=== PATIENT | female | born 1965 | race Caucasian/White ===

== ENCOUNTER 2017-04-22 06:50 | Emergency (ER) | payer OTHER ==
--- NOTE | ~2017-04-22 | CT71 ---
[facility] A Service of [facility] RADIOLOGY TEXT RESULTS PATIENT: AB CONNORS LOCATION: [facility] : 65 UNIT #: [id number] AGE: [address]: Kym Cowan APRN SEX: F ORDER DR: [id number] [place] [id number] [facility]. [place], [place] [address] [id number] MR#: [id number] Acc #: [id number] NAME: AB CONNORS : 1965 SEX: F STUDY DATE/TIME: 04/22/2017 8:45 UNIT: [facility] ROOM: STUDY DESCRIPTION: CT Head Wo Contrast Attending Physician: Kym Cowan A.P.R.N. Ordering Physician: Kym Cowan A.P.R.N. Primary Care Physician: Leonard Carey M.D. MEDICAL IMAGING REPORT This report is preliminary unless electronic signature is present EXAM CT of the head without contrast INDICATIONS Headache for [address] exam was performed with one or more of the following radiation dose reduction techniques: automatic exposure control, adjustment of mA and/or kV according to patient size, and iterative reconstruction. CT head was performed without contrast. COMPARISON 08/17/2016 FINDINGS There is no intracranial hemorrhage. There is no acute cortical based infarction, focal mass lesion or hydrocephalus. The included orbits and paranasal sinuses are unremarkable. The bone windows are unremarkable. IMPRESSION No acute intracranial abnormality. Dictated by... Ryan Tovar M.D. THIS IS AN ELECTRONICALLY VERIFIED REPORT Ryan Tovar M.D. at 04/24/2017 7:47 AM ARS/willy TD: 04/22/2017 13:23 [facility] A Service [facility] RADIOLOGY TEXT RESULTS PATIENT: AB CONNORS LOCATION: [facility] : [birth year] UNIT #: [id number] AGE: [address]: Kym Cowan APRN SEX: F ORDER DR: ELMO #: [id number] MEDICAL IMAGING REPORT Page 1 of 1 COPY
--- NOTE | ~2017-04-22 | CR72 ---
[facility] A Service of [facility] RADIOLOGY TEXT RESULTS PATIENT: BA CONNORS LOCATION: [facility] : [birth year] UNIT #: [id number] AGE: [address]: Kym Cowan APRN SEX: F ORDER DR: [id number] [facility] [address] [place], [place] [address] [id number] E MR#: [id number] Acc #: [id number] NAME: AB CONNORS : 1965 SEX: F STUDY DATE/TIME: 04/22/2017 8:05 UNIT: [facility] ROOM: STUDY DESCRIPTION: CR Chest Single View Portable Attending Physician: Kym Cowan A.P.R.N. Ordering Physician: [facility] Primary Care Physician: Leonard Carey M.D. MEDICAL IMAGING REPORT This report is preliminary unless electronic signature is present EXAM Portable AP view of the chest COMPARISON August 04, 2016, February 09, 2016, and January 23, 2016. FINDINGS 51-year-old female with dyspnea and weakness for 2 days. History of hypertension. FINDINGS Lung volumes are diminished from comparison study with increasing bibasilar opacities. There are also increased interstitial opacities throughout the lungs likely reflecting bronchovascular crowding. Cardiomediastinal silhouette is within normal limits for portable technique low lung volumes. No evidence of significant pleural effusion. No pneumothorax. IMPRESSION Low lung volumes with increased bilateral lung opacities favoring bronchovascular crowding and atelectasis. Correlation to exclude any signs of pneumonia recommended. No pleural effusion. Dictated by... Fernando Hinson M.D. THIS IS AN ELECTRONICALLY VERIFIED REPORT Fernando Hinson M.D. at 04/29/2017 3:36 PM MARCK/barbara TD: 04/22/2017 13:17 JOB #: [id number] [facility] A Service of [facility] RADIOLOGY TEXT RESULTS PATIENT: AB CONNORS LOCATION: [facility] : [birth year] UNIT #: [id number] AGE: [address]: Kym Cowan APRN SEX: F ORDER DR: MEDICAL IMAGING REPORT Page 1 of 1 COPY
[~2017-04-22 06:50] MED LIST: ALPRAZOLAM; ALPRAZOLAM PO; AMITRIPTYLINE H25 MG PO; AMITRYPTYLINE PO; AMLODIPINE BESYL5 MG PO; ANUSOL-HC SUPP25 M1 PR; ASMANEX; BENADRYL; BENADRYL ALLERG25 MG PO; BENADRYL12.5 M1 PO; BENADRYL25 M1 PO; BENADRYL25 MG PO; BENTYL20 MG PO; BUSPAR PO; BUSPAR15 M1 PO; BUSPAR15 M2 PO; BUSPAR15 MG PO; BUSPIRONE HCL10 MG PO; BUSPIRONE HCL15 MG PO; CARVEDILOL12.5 MG PO; CARVEDILOL6.25 MG PO; CIPRO PO; CLEOCIN HCL300 M1 PO; CLEOCIN PO; COLACE; COMBIVENT INH14.7 GM INH; COMBIVENT MININEB INH; COREG PO; COREG12.5 MG PO; COREG3.125 MG PO; COREG6.25 MG PO; DAILY VALUE1 EACH PO; DEMEROL PO; DEMEROL50 MG; DEMEROL50 MG PO; DIPHENHYDRAMINE50 M2 PO; DITROPAN5 MG PO; DUONEB 2.5-0.5 M3 ML NEB; EFFEXOR XR75 MG PO; EFFEXOR-XR75 MG PO; EFFEXOR75 M2 PO; FAMOTIDINE PO; FLOMAX0.4 M1 PO; GLUCOTROL PO; GLUCOTROL XL; GLUCOTROL XL PO; HYDROCHLOROTH12.5 M1 PO; HYDROCHLOROTH12.5 MG PO; HYDROCHLOROTHIA25 MG PO; IMDUR-ER30 M1 PO; IMDUR30 MG PO; INVOKANA100 MG PO; INVOKANA300 MG PO; JANUVIA PO; K-DUR20 ME1 PO; K-TAB ER20 MEQ PO; KCL PO; KEPPRA500 M1 PO; KEPPRA750 M1 PO; LASIX PO; LEVEMIR SUBQ; LEVEMIR100 UNITS/ SUBQ; LISINOPRIL; LISINOPRIL PO; LISINOPRIL10 MG PO; LISINOPRIL20 MG PO; LISINOPRIL5 MG PO; MACROBID100 MG DOB; MEDROL DOSE PAK; MEDROL PO; MEPERIDINE HCL50 MG PO; MILK OF MAGNESIA; MIRALAX17 GM PO; NEXIUM; NEXIUM PO; NITROGLYGERIN0.4 MG SL; NITROGYLCERIN SUBLINGUAL; NORVASC PO; NOVOLOG100 U/ML SUBQ; OMEPRAZOLE20 M2 PO; OMEPRAZOLE40 MG PO; PEPCID40 MG PO; PHENERGAN PO; PHENERGAN25 M1 PO; PHENERGAN25 MG PO; POLYTRIM O10 ML OPTH OD; PREDNISONE PO; PRILOSEC20 M1 PO; PRILOSEC40 MG PO; PROAIR IH; PROTONIX PO; PYRIDIUM100 MG PO; REGLAN10 MG PO; RESTORIL15 MG PO; RESTORIL7.5 MG PO; ROBAXIN500 MG PO; SIMVASTATIN10 MG PO; SYMBICORT80 INH; TIZANIDINE HCL4 M1 PO; TRAJENTA PO; TRAZODONE PO; TYGACIL; VALTREX PO; XANAX2 MG PO; ZANAFLEX4 M1 PO; ZITHROMAX1 G/PKT PO; ZOCOR10 MG PO; ZOFRAN PO; ZONEGRAN100 M1 PO; [UNRECOGNIZED DRUG - OTHER]; [UNRECOGNIZED DRUG - OTHER]
[2017-04-22 08:37] LABS: BASOPHIL% 0.8 % (0-2.5); EOSINOPHIL# 0.2 X10e3 (0-0.7); EOSINOPHIL% 3.6 % (0.0-7.0); HEMATOCRIT 45.8 % (35.0-45.0); LYMPHOCYTE# 1.6 X10e3 (1.0-3.5); MEAN CORPUSCULAR HEMOGLOBIN 30.7 PG (28-34); MEAN CORPUSCULAR HGB CONC 32.7 g/dL (30-36); MEAN PLATELET VOLUME 9.4 FL (6.5-11.5); MONOCYTE# 0.5 X10e3 (0-1.0); MONOCYTE% 7.8 % (3.0-12.0); NEUTROPHIL# 3.6 X10e3 (1.5-7.1); NEUTROPHIL% 60.8 % (40-75); PLATELET COUNT 125 X10e3 (140-420); RED BLOOD COUNT 4.87 X10e (3.90-5.30); RED CELL DISTRIBUTION WIDTH 13.9 % (11.0-15.5)
[2017-04-22 08:38] LABS: DIFF IND NO
[2017-04-22 08:45] LABS: POC - CKMB <1.0 ng/mL (0.0-7.9); POC - TROPONIN <0.05 ng/mL (<=0.05)
[2017-04-22 09:15] LABS: ALBUMIN SERUM 3.6 g/dL (3.5-5.0); BILIRUBIN,TOTAL 0.8 mg/dL (0.2-2.0); CREATININE SERUM 0.5 mg/dL (0.6-1.4); GLOM FILT RATE Estimated 112.1 mL/min (>60); POTASSIUM 3.5 mmol/L (3.5-5.1); PROTEIN TOTAL SERUM 7.7 g/dL (6.0-8.3)
[2017-04-22 10:51] LABS: URINE SOURCE CLEAN CATCH
[2017-04-22 10:57] LABS: URINE APPEARANCE CLEAR; URINE BILIRUBIN NEG (NEG); URINE BLOOD 2+ (NEG); URINE COLOR YELLOW; URINE GLUCOSE >1000 MG/DL (NEG); URINE KETONE NEG (NEG); URINE LEUKOCYTE ESTERASE NEG (NEG); URINE NITRATE NEG (NEG); URINE PROTEIN NEG (NEG); URINE SPECIFIC GRAVITY 1.042 (1.003-1.035); URINE UROBILINOGEN 0.2 MG/DL (NEG)
[2017-04-22 10:59] LABS: CULTURE INDICATED? YES; URINE BACTERIA AUWI NEG (NEGATIVE); URINE SQUAMOUS EPITHELIAL CELL OCC /[HPF]
== END 2017-04-22 13:14 | disposition home or self-care (01) ==
LOC: CED 06:50
PROVIDERS: Nurse Practitioner
DX: R51 Headache (principal); N39.0 Urinary tract infection, site not specified; I11.0 Hypertensive heart disease with heart failure; I50.9 Heart failure, unspecified; E11.9 Type 2 diabetes mellitus without complications; Z87.891 Personal history of nicotine dependence; Z90.710 Acquired absence of both cervix and uterus; Z90.49 Acquired absence of other specified parts of digestive tract; Z98.890 Other specified postprocedural states; Z88.2 Allergy status to sulfonamides; Z88.0 Allergy status to penicillin; Z88.5 Allergy status to narcotic agent; Z88.1 Allergy status to other antibiotic agents; Z88.8 Allergy status to other drugs, medicaments and biological substances; Z79.899 Other long term (current) drug therapy; Z79.4 Long term (current) use of insulin
CPT/HCPCS: 36415; 70450; 71010; 80053; 81003; 82553; 82947; 83880; 84484; 85025; 87086; 96361; 96374; 99284; J1200; J2405

== ENCOUNTER → 2017-05-10 | Outpatient (CLI) | payer OTHER ==
[~2017-05-10] MED LIST changes: +ALBUTEROL17 GM INH; +ALLERGY PLUS-S1 EACH PO; +ASPIRIN81 MG PO; +CRESTOR10 MG PO; +CRESTOR40 MG; +DULERA 200 MCG/13 GM INH; +EFFIENT10 MG PO; +HUMULIN R500 UNIT/2 SUBQ; +JARDIANCE25 MG; +JARDIANCE25 MG PO; +POTASSIUM CHLO20 ME1 PO; +SYMBICORT INH; +TIZANIDINE HCL4 M1
--- NOTE | ~2017-05-10 | CT69 ---
[facility] A Service of [facility] RADIOLOGY TEXT RESULTS PATIENT: AB CONNORS LOCATION: [facility] : [birth year] UNIT #: [id number] AGE: [address]: Jonathan Reyes II, MD SEX: F ORDER DR: [id number] [place] [address] [id number] O MR#: [id number] Acc #: [id number] NAME: AB CONNORS : 1965 SEX: F STUDY DATE/TIME: 05/10/2017 9:52 UNIT: [facility] ROOM: STUDY DESCRIPTION: CT Head W Contrast Attending Physician: Jonathan Reyes II., M.D. Referring Physician: Jonathan Reyes II., M.D. Ordering Physician: Jonathan Reyes II., M.D. Primary Care Physician: Leonard Carey M.D. MEDICAL IMAGING REPORT This report is preliminary unless electronic signature is present. EXAM CT head with contrast 05/10/2017 HISTORY Diffuse head and neck pressure sensation, difficulty walking, off balance. Symptoms present for 1.5 month. Diagnosed with Chiari malformation 6 years ago. Diabetes. COMPARISON Noncontrast CT head 04/22/2017. TECHNIQUE This CT exam was performed with one or more of the following radiation dose reduction techniques: automatic exposure control, adjustment of mA and/or kV according to patient size, and iterative reconstruction. FINDINGS No enhancing mass lesion or abnormal leptomeningeal enhancement is seen. Ventricular configuration is normal. Normal pratt matter-white matter junction distinction. No convincing evidence of acute evolving infarct. Paranasal sinuses appear clear. Mastoid air cells are clear. Calvaria is within normal limits. IMPRESSION 1. Normal CT head with contrast. Dictated by... Kayy Richards M.D. THIS IS AN ELECTRONICALLY VERIFIED REPORT [facility] A Service [facility] RADIOLOGY TEXT RESULTS PATIENT: AB CONNORS LOCATION: [facility] : [birth year] UNIT #: [id number] AGE: [address]: Jonathan Reyes II, MD SEX: F ORDER DR: Kayy Richards M.D. at 05/13/2017 1:22 PM LAUREN/traci TD: 05/10/2017 17:09 JOB #: [id number] MEDICAL IMAGING REPORT Page 1 of 1
[2017-05-10 09:15] LABS: POC - CREATININE 0.82 mg/dL (0.44-1.03); POC - GFR >60.0 mL/min (>60)
== END | disposition home or self-care (01) ==
LOC: SCT 08:52 → SMRI 09:30 → SCT 09:30 → SMRI 13:45
PROVIDERS: Psychiatry & Neurology Neurology
DX: G43.709 Chronic migraine without aura, not intractable, without status migrainosus (principal)
CPT/HCPCS: 70460; 82565; Q9967

== ENCOUNTER 2017-07-20 23:53 | Inpatient (IN) | payer OTHER ==
[~2017-07-20] VITALS: Ht 152.4 cm; Wt 105.0 kg
--- NOTE | ~2017-07-20 | EKG ---
PATIENT: AB CONNORS UNIT #: [id number] Ventricular Rate: 83 BPM Atrial Rate: 83 BPM P-R Interval: 162 ms QRS Duration: 90 ms Q-T Interval: 396 ms QTC Calculation(Bezet): 465 ms P [place]: 49 degrees Calculated R [place]: -3 degrees Calculated T [place]: 28 degrees Diagnosis Line: Normal sinus rhythm Diagnosis Line: Minimal voltage criteria for LVH, may be normal Diagnosis Line: variant Diagnosis Line: Borderline ECG Diagnosis Line: When compared with ECG of 24-JUL-2017 17:21, Diagnosis Line: No significant change was found Diagnosis Line: Confirmed by EVELYN AHUMADA MD ([id number]) on Diagnosis Line: 07/26/2017 4:34:40 PM INTERPRETING MD: STACY
--- NOTE | ~2017-07-20 | CO ---
Unit #: [id number] #: [id number] Patient: AB CONNORS [id number] [facility] [address]. [place], [place] [address] [id number] I MR#: [id number] NAME: AB CONNORS ROOM: 565 Age: 52 Sex: F Admission Date: 07/21/2017 : 1965 Attending Physician: Tacho Syed M.D. Primary Care Physician: Leonard Carey M.D. Consultation Date: 07/21/2017 CONSULTATION REPORT REASON FOR CONSULTATION Chest pain. HISTORY OF PRESENT ILLNESS This is a 52-year-old white female, previously seen by our group at [facility] in 03/2015 for chest pain. The patient's symptoms were atypical and no workup was completed at that time. Prior to that admission, she underwent a Lexiscan Cardiolite stress test in 07/2014, which revealed no ischemia. She underwent a cardiac catheterization in 2011 that revealed nonobstructive coronary artery disease. Additional past medical history includes hypertension, hyperlipidemia, diabetes mellitus type 2, COPD, obesity and chronic pain syndrome. The patient presented to the hospital with complaints of chest pain. She states that the pain started yesterday in her left arm. It went all the way up her arm into her chest and her neck. It was described as a sharp shooting pain. She states that her arm was discolored when this occurred. There was no nausea, vomiting, or diaphoresis. The pain has been constant over the past day. There are no aggravating or alleviating factors. She admits to some dizziness on occasion. There are no reports of syncope. She denies PND, orthopnea or lower extremity edema. She has had some generalized abdominal pain, but no additional symptoms. She denies fever or chills. On exam, she has an erythematous rash on her left arm, chest and face. The patient denies any new medication, food, soap or detergent. In the emergency department, initial cardiac enzymes were negative. EKG reveals sinus rhythm with nonspecific ST-T wave changes. Labs revealed a platelet count of 126,000 with a sodium of 134. Glucose level was elevated at 261. AST was elevated at 59 and ALT was 52. BNP was normal. Initial cardiac enzymes were negative. The patient was admitted for further observation. Cardiology was consulted for chest pain. PAST MEDICAL HISTORY 1. Previous admission to [facility] in 03/2015 for atypical chest pain with borderline hypotension. 2. 2D echocardiogram, 09/13/2012, revealed an ejection fraction 45% to 50% with impaired LV relaxation. 3. Cardiac catheterization, 04/2012, revealed left main normal, mid left circumflex 40%, mid LAD 20% to 30%, right coronary artery up to 38% in the proximal portion, ejection fraction 55%. 4. Lexiscan Cardiolite stress test, 08/09/2014, revealed no ischemia. Ejection fraction 69%. 5. Previous admission for altered mental status thought to be due to Unit #: [id number] #: [id number] Patient: AB CONNORS overmedication. 6. Chronic pain syndrome. 7. Hypertension. 8. Hyperlipidemia. 9. Diabetes mellitus, type 2. 10. COPD. 11. Obstructive sleep apnea. 12. Obesity. 13. History of GI bleed. 14. Reformed tobacco abuse. MEDICATIONS Demerol 50 mg p.o. q.4 hours p.r.n. for pain, Xanax 2 mg p.o. t.i.d., Effexor XR 75 mg p.o. daily before breakfast, carvedilol 12.5 mg p.o. b.i.d., hydrochlorothiazide 12.5 mg p.o. daily, potassium chloride 20 mEq p.o. daily, amitriptyline 25 mg p.o. at bedtime, tizanidine 4 mg p.o. t.i.d., lisinopril 20 mg p.o. daily, Crestor 20 mg p.o. daily, Januvia 100 mg p.o. before breakfast, Jardiance 25 mg p.o. daily, Humulin R sliding scale before meals and at bedtime. ALLERGIES Multiple allergies including NSAIDs, penicillin, aminoglycosides, sulfa, morphine, codeine, hydrocodone, oxycodone, propoxyphene, aspirin, salicylates, methylprednisolone, tetracycline, erythromycin, clindamycin, gabapentin, promethazine, hydromorphone, butorphanol, dicyclomine, metoclopramide, Toradol, Topamax, Levaquin, , zonisamide, adverse reaction to Tylenol with elevated LFTs. SOCIAL HISTORY The patient uses a walker/cane. She is a reformed smoker and quit in 2008. She previously smoked 3 packs per day for 33 years. There are no reports of alcohol or illicit drug use. FAMILY HISTORY Significant for heart disease. Her father had an aneurysm. Her brother had possible myocardial infarction, though details are unavailable. She has another brother in [place] who has coronary stents. She has a sister with heart disease with details unavailable. REVIEW OF SYSTEMS A 10-point review of systems negative except for details noted above in HPI. PHYSICAL EXAMINATION VITAL SIGNS: Temperature 98.7, pulse 114, blood pressure 143/80. CONSTITUTIONAL: This is a 52-year-old white female, in no acute distress. SKIN: Warm and dry. NECK: Supple. No jugular vein distention. No hepatojugular reflux. Normal carotid upstrokes. No carotid bruits auscultated. HEART: S1 and S2. Regular rate and rhythm. Slightly tachycardic. No murmurs, rubs, or gallops. LUNGS: Bilateral breath sounds have good air entry throughout all lung peralta. Respirations are even and nonlabored. No rales, rhonchi, or wheezes. ABDOMEN: Soft, nontender, and nondistended. Positive bowel sounds auscultated x4 quadrants. No ascites noted. Abdomen is obese. EXTREMITIES: Bilateral lower extremities have no pretibial or pitting edema. DP and PT pulses are 2+. Capillary refill less than 3 seconds. Unit #: [id number] #: [id number] Patient: AB CONNORS DIAGNOSTIC STUDIES LABORATORY RESULTS: White blood cell count 6.8, hemoglobin 15.3, hematocrit 45.4, platelets 126. Sodium 134, potassium 3.5, chloride 98, CO2 of 29, BUN 6, creatinine 0.6, glucose 261. AST 59, ALT 52, alkaline phos 142, BNP 14, INR 1.0. IMAGING STUDIES: Chest x-ray is pending. Cardiovascular; EKG reveals sinus rhythm with nonspecific ST-T wave changes, QTc 460 msec. IMPRESSION 1. Left arm pain with erythematous rash, possibly allergic reaction versus infection. 2. Atypical chest pain. 3. Sinus tachycardia. 4. Normal stress test in 07/2014. 5. Nonobstructive coronary artery disease, 04/2012. 6. Hypertension. 7. Hyperlipidemia. 8. Diabetes mellitus, type 2. 9. Obesity. 10. COPD. 11. Obstructive sleep apnea. 12. Chronic pain. 13. Chronically elevated liver function tests. 14. Mild thrombocytopenia. PLAN 1. The patient was in the hospital with left arm and chest pain. Her symptoms are atypical and cardiac enzymes and EKG are negative. 2. On exam, the patient has an erythematous rash, which could be from some sort of allergic reaction. She will be started on Benadryl for further management. 3. There is no evidence of congestive heart failure on exam. 4. The patient's vital signs are stable except for mild sinus tachycardia. She will be continued on Coreg, hydrochlorothiazide and lisinopril as dosed. 5. No further cardiac workup is anticipated. Dictated by... Daisy Nobles APRN for Fanta Maher/wes TD: 07/24/2017 04:25 JOB #: [id number] Unit #: [id number] #: [id number] Patient: AB CONNORS CONSULTATION REPORT Page 1 of 1 X X CONSULTATION REPORT
--- NOTE | ~2017-07-20 | EKG ---
PATIENT: AB CONNORS UNIT #: [id number] Ventricular Rate: 114 BPM Atrial Rate: 114 BPM P-R Interval: 158 ms QRS Duration: 80 ms Q-T Interval: 334 ms QTC Calculation(Bezet): 460 ms P [place]: 35 degrees Calculated R [place]: 0 degrees Calculated T [place]: 41 degrees Diagnosis Line: Sinus tachycardia Diagnosis Line: Nonspecific T wave abnormality Diagnosis Line: Abnormal ECG Diagnosis Line: When compared with ECG of 04-AUG-2016 20:43, Diagnosis Line: Nonspecific T wave abnormality, worse in Lateral Diagnosis Line: leads Diagnosis Line: Confirmed by EVELYN AHUMADA MD ([id number]) on Diagnosis Line: 07/22/2017 4:59:10 PM INTERPRETING MD: STACY
--- NOTE | ~2017-07-20 | CT16 ---
[facility] A Service of [facility] RADIOLOGY TEXT RESULTS PATIENT: AB CONNORS LOCATION: [facility] 565[address]01 : [birth year] UNIT #: [id number] AGE: [address]: Tacho Syed MD SEX: F ORDER DR: [id number] [address] [address] [id number] E MR#: [id number] Acc #: [id number] NAME: AB CONNORS : 1965 SEX: F STUDY DATE/TIME: 07/21/2017 1:46 UNIT: SED ROOM: STUDY DESCRIPTION: CT Angio Chest for PE Attending Physician: Camacho Queen M.D. Ordering Physician: Camacho Queen M.D. Primary Care Physician: Leonard Carey M.D. MEDICAL IMAGING REPORT This report is preliminary unless electronic signature is present. EXAM CT angiogram chest with IV contrast HISTORY Chest pain and left arm pain and elevated D-dimer today. FINDINGS IV contrast-enhanced CT angiogram of the chest was performed with 3-D reconstructions. This CT exam was performed with one or more of the following radiation dose reduction techniques: automatic exposure control, adjustment of mA and/or kV according to patient size, and iterative reconstruction. Minimal atelectasis in the posterior lower lobes and in the posterior lingula. No airspace infiltrates. No effusions. No pulmonary embolus. Normal-caliber pulmonary arteries. No adenopathy. Normal caliber thoracic aorta. No pericardial thickening or effusion. Morphologic changes of cirrhosis. Cholecystectomy.. IMPRESSION 1. No acute findings. 2. No evidence of pulmonary embolus. No active disease in the lungs. 3. No adenopathy. 4. Normal caliber thoracic aorta. Dictated by... Grabiel Atwood M.D. THIS IS AN ELECTRONICALLY VERIFIED REPORT [facility] A Service of [facility] RADIOLOGY TEXT RESULTS PATIENT: AB CONNORS LOCATION: [facility] 565-01 : [birth year] UNIT #: [id number] AGE: [address]: Tacho Syed MD SEX: F ORDER DR: Grabiel Atwood M.D. at 07/22/2017 4:48 AM ROMEO/meghna TD: 07/21/2017 23:39 JOB #: [id number] MEDICAL IMAGING REPORT Page 1 of 1
--- NOTE | ~2017-07-20 | EKG ---
PATIENT: AB CONNORS UNIT #: [id number] Ventricular Rate: 95 BPM Atrial Rate: 95 BPM P-R Interval: 150 ms QRS Duration: 92 ms Q-T Interval: 366 ms QTC Calculation(Bezet): 459 ms P [place]: 38 degrees Calculated R [place]: -8 degrees Calculated T [place]: 31 degrees Diagnosis Line: Normal sinus rhythm Diagnosis Line: Moderate voltage criteria for LVH, may be normal Diagnosis Line: variant Diagnosis Line: Borderline ECG Diagnosis Line: When compared with ECG of 21-JUL-2017 09:41, Diagnosis Line: Nonspecific T wave abnormality no longer evident Diagnosis Line: in Lateral leads Diagnosis Line: Confirmed by WESTON RODARTE MD ([id number]) on 07/24/2017 Diagnosis Line: 7:21:13 PM INTERPRETING MD: ASTER KHANNA
--- NOTE | ~2017-07-20 | CO ---
Unit #: [id number] #: [id number] Patient: AB CONNORS [id number] [facility]. [place], [place] [address] [id number] I MR#: [id number] NAME: AB CONNORS ROOM: [facility] Age: 52 Sex: F Admission Date: 07/21/2017 : 1965 Attending Physician: Tacho Syed M.D. Primary Care Physician: Leonard Carey M.D. CONSULTATION REPORT HISTORY OF PRESENT ILLNESS She is a 52 year old that has had a history of facial hives to taking aspirin about 15 years ago. She currently needs the aspirin to take with Plavix for patency of her cardiac stent that was placed today. She currently denies any shortness of air, wheezing to aspirin. She also denies any fever, chills, or vomiting. She has a history of hypertension, type 2 diabetes, COPD, obstructive sleep apnea, chronic pain, obesity. PHYSICAL EXAMINATION VITAL SIGNS: Temperature 98.7, pulse 120, respirations 12, BP 140/80. GENERAL: She is alert, active, cooperative in no acute distress. HEENT: Her oropharynx is clear. The lips are of normal size without any swelling. NECK: Soft. LUNGS: Clear to auscultation. ABDOMEN: Soft and protuberant. SKIN: With some facial scaly redness on the cheeks and the forehead. There are no hives, blisters, or bruising. IMPRESSION Cutaneous aspirin allergy: I have discussed with the patient the risks and benefits of taking aspirin. I have told her she will be desensitized to aspirin in the ICU. She is in agreement with this. Then she will need to continue to take the baby aspirin continuously. If she misses more than three days of aspirin, she would need to be desensitized again. Hopefully, it does not happen. I will follow this patient along with you. Dictated by... Bassam Bey M.D. DEP/ TD: 07/25/2017 13:50 JOB #: [id number] Unit #: [id number] #: [id number] Patient: AB CONNORS CONSULTATION REPORT Page 1 of 1 X Bassam Bey MD CONSULTATION REPORT
--- NOTE | ~2017-07-20 | CO ---
Unit #: [id number] #: [id number] Patient: AB CONNORS [id number] [address] [address] [id number] Louie MR#: [id number] NAME: AB CONNORS ROOM: 56 Age: 52 Sex: F Admission Date: 07/21/2017 : 1965 Attending Physician: Tacho Syed M.D. Primary Care Physician: Leonard Carey M.D. Consultation Date: 07/23/2017 CONSULTATION REPORT JOB NOTE: PATIENT NAME NOT DICTATED HISTORY OF PRESENT ILLNESS This is a 52-year-old female with history of type 2 diabetes mellitus, coronary artery disease, congestive heart failure, hypertension, hyperlipidemia, and morbid obesity. She has been admitted with the chest pain. She has known to me from my office. She is taking Humulin R U-500 70 units with meals and 50 units at bedtime. Her blood sugar has been running above 200 in the hospital. I have been asked to see the patient for further management. REVIEW OF SYSTEMS 12-point review of systems is unremarkable except as noted in HPI. PAST MEDICAL HISTORY Type 2 diabetes mellitus, coronary artery disease, congestive heart failure diastolic, obesity, hypertension, hyperlipidemia, migraine headaches, and depression. SURGICAL HISTORY Cholecystectomy, EGDs, hiatal hernia repair, hysterectomy, partial carpal tunnel syndrome surgery. HOME MEDICATIONS List is reviewed, taking Januvia 100 mg daily, carvedilol, lisinopril, Humulin R U-500 70 units each meal and 50 units at bedtime. ALLERGIES To penicillin and multiple other medications including the steroids, Solu-Medrol. SOCIAL HISTORY Reformed smoker. No current alcohol use. FAMILY HISTORY Noncontributory. PHYSICAL EXAMINATION GENERAL: She is lying comfortably, in no acute distress. Hemodynamically stable. VITAL SIGNS: Afebrile. HEENT: EOMI. Pupils equally reactive to light. NECK: Supple. No thyromegaly noted. CHEST: Good air entry. Unit #: [id number] #: [id number] Patient: AB CONNORS CVS: Regular rhythm. S1, S2. No murmurs. ABDOMEN: Soft and nontender. Bowel sounds positive. DIAGNOSTIC STUDIES BUN and creatinine are within normal limits. A1c is 10.8. ASSESSMENT Type 2 diabetes mellitus, poorly controlled; poor compliance. PLAN Start the patient on Levemir 60 units subcu b.i.d. R insulin 20 units each meal. Discontinue R insulin at bedtime, discontinue NovoLog. Start R insulin medium dose sliding scale. We will continue to follow the patient for further management. Dictated by... Fanta Lazcano/wes TD: 07/23/2017 19:36 JOB #: [id number] CONSULTATION REPORT Page 1 of 1 X Ekaterina Ramon MD X CONSULTATION REPORT
--- NOTE | ~2017-07-20 | BMI ---
[facility] Nutrition Therapy DATE: 07/22/17 Patient: AB CONNORS Physician: LONDON Address: [address] [place] [address] DRIVE Room/Bed: [address] [place] [address], Zip: [place] [address] Admit Date: 07/21/17 Date of : [birth year] Height: 5 0 Weight: 229 104 HIGH BMI NOTE: DX: CHEST PAIN ANTHROPOMETRICS: HT: 60", WT: 229#, BMI: 44.7 DIET: HH, CCD RECOMMENDATIONS: CONTINUE HH, CC DIET TO PROMOTE A STEADY WEIGHT LOSS TOWARDS A HEALTHY BMI OF 19-25 Respectfully, MARCELA AMAYA, AMI, LD [facility] cc: client file
--- NOTE | ~2017-07-20 | EKG ---
PATIENT: AB CONNORS UNIT #: [id number] Ventricular Rate: 93 BPM Atrial Rate: 93 BPM P-R Interval: 156 ms QRS Duration: 88 ms Q-T Interval: 370 ms QTC Calculation(Bezet): 460 ms P [place]: 45 degrees Calculated R [place]: -9 degrees Calculated T [place]: 46 degrees Diagnosis Line: Normal sinus rhythm Diagnosis Line: Minimal voltage criteria for LVH, may be normal Diagnosis Line: variant Diagnosis Line: Borderline ECG Diagnosis Line: When compared with ECG of 04-AUG-2016 20:43, Diagnosis Line: No significant change was found Diagnosis Line: Confirmed by EVELYN AHUMADA MD ([id number]) on Diagnosis Line: 07/24/2017 11:10:24 PM INTERPRETING MD: STAYC
--- NOTE | ~2017-07-20 | EKG ---
PATIENT: AB CONNORS UNIT #: [id number] Ventricular Rate: 94 BPM Atrial Rate: 94 BPM P-R Interval: 144 ms QRS Duration: 92 ms Q-T Interval: 376 ms QTC Calculation(Bezet): 470 ms P [place]: 45 degrees Calculated R [place]: -5 degrees Calculated T [place]: 43 degrees Diagnosis Line: Normal sinus rhythm Diagnosis Line: Minimal voltage criteria for LVH, may be normal Diagnosis Line: variant Diagnosis Line: Borderline ECG Diagnosis Line: When compared with ECG of 25-JUL-2017 05:33, Diagnosis Line: (unconfirmed) Diagnosis Line: No significant change was found Diagnosis Line: Confirmed by EVELYN AHUMADA MD ([id number]) on Diagnosis Line: 07/26/2017 4:48:35 PM INTERPRETING MD: STACY
--- NOTE | ~2017-07-20 | CR63 ---
[facility] A Service of [facility] & [facility] RADIOLOGY TEXT RESULTS PATIENT: AB CONNORS LOCATION: [facility] [id number] : 65 UNIT #: [id number] AGE: [address]: Tacho Syed MD SEX: F ORDER DR: [id number] [facility] [address] [facility]. [place], [place] [address] [id number] I MR#: [id number] Acc #: [id number] NAME: AB CONNORS : 1965 SEX: F STUDY DATE/TIME: 07/21/2017 17:53 UNIT: [facility] ROOM: [facility] STUDY DESCRIPTION: CR Chest 2 View Attending Physician: Tacho Syed M.D. Ordering Physician: Tacho Syed M.D. Primary Care Physician: Leonard Carey M.D. MEDICAL IMAGING REPORT This report is preliminary unless electronic signature is present EXAM Two views of the chest dated 07/21/2017. COMPARISON CT angiogram chest dated 07/21/2017. HISTORY Cough, congestion and shortness of air today. FINDINGS Two views of the chest were obtained. PA and lateral examination of the chest upright shows a good expansion of the parenchyma with a normal distribution of the pulmonary vascularity. There is no indication of congestion, effusion, infiltrate, tumor, or nodular density. The pleural reflections and diaphragmatic contours are normal. The cardiac silhouette and mediastinal anatomy is within normal limits. IMPRESSION Normal chest. Dictated by... Christelle Macias M.D. THIS IS AN ELECTRONICALLY VERIFIED REPORT Christelle Macias M.D. at 07/24/2017 9:15 AM CPR/psc TD: 07/22/2017 09:51 JOB #: [id number] MEDICAL IMAGING REPORT Page 1 of 1 COPY
--- NOTE | ~2017-07-20 | EKG ---
PATIENT: AB CONNORS UNIT #: [id number] Ventricular Rate: 82 BPM Atrial Rate: 82 BPM P-R Interval: 170 ms QRS Duration: 88 ms Q-T Interval: 388 ms QTC Calculation(Bezet): 453 ms P [place]: 38 degrees Diagnosis Line: Normal sinus rhythm Diagnosis Line: Normal ECG Diagnosis Line: When compared with ECG of 24-JUL-2017 05:55, Diagnosis Line: (unconfirmed) Diagnosis Line: No significant change was found Diagnosis Line: Confirmed by EVELYN AHUMADA MD ([id number]) on Diagnosis Line: 07/24/2017 11:06:17 PM INTERPRETING MD: STACY
--- NOTE | ~2017-07-20 | HP ---
Unit #: [id number] #: [id number] Patient: CORA LAMB [id number] [address] [address] [id number] I MR#: [id number] NAME: CORA LAMB ROOM: 565 Age: 52 Sex: F Admission Date: 07/21/2017 : 1965 Attending Physician: Tacho Syed M.D. Primary Care Physician: Leonard Carey M.D. HISTORY AND PHYSICAL ADMISSION DIAGNOSES 1. Chest pain. 2. Left upper extremity pain. 3. History of coronary artery disease. 4. History of congestive heart failure. 5. Metabolic syndrome with hypertension, dyslipidemia and diabetes. 6. History of migraine headache. 7. History of chronic pain. 8. Depression and anxiety. HISTORY OF PRESENT ILLNESS Miss Cora Lamb is a 52-year-old female, a patient of Dr. Carey, who comes to [facility] with the complaints of the left upper extremity pain which had migrated to left neck and then subsequently started having a chest pain with the heavy sensation in the chest, rates pain as 6-8/10, along with the shortness of air, denies any diaphoresis, nocturnal dyspnea, fevers, chills, cough, headache, syncope or dizziness, denies any nausea, vomiting, diarrhea or abdominal pain. REVIEW OF SYSTEMS A 12-point review of systems on this patient is basically negative except as above. PAST MEDICAL HISTORY Past medical history is significant for a history of coronary artery disease, history of diastolic heart failure, history of obesity, dyslipidemia, diabetes, also anxiety, depression, migraine headache and chronic pain in the back. PAST SURGICAL HISTORY Past surgical history is significant for cholecystectomy, EGD and colonoscopy, partial hysterectomy, appendectomy, hiatal hernia, carpal tunnel release surgery, tooth extraction and lithotripsy for the nephrolithiasis. HOME MEDICATION Home medications on this female include Demerol, Xanax, Effexor, carvedilol, hydrochlorothiazide, potassium pills, amitriptyline, Zanaflex, lisinopril, Crestor, Januvia, alogliptin and insulin sliding scale. ALLERGIES She has multiple allergies including penicillin, aminoglycosides, sulfa, codeine, morphine, hydrocodone, nonsteroidals, oxycodone, propoxyphene, Unit #: [id number] #: [id number] Patient: CORA LAMB aspirin, salicylates, Solu-Medrol, tetracycline, erythromycin, clindamycin, Reglan, Bentyl, Toradol, topiramate, levofloxacin, gatifloxacin, Zonegran. SOCIAL HISTORY She is a reformed smoker and no current history of alcohol or illicit drugs. FAMILY HISTORY Unremarkable. PHYSICAL EXAMINATION GENERAL: She is a 52-year-old female not in acute distress. VITAL SIGNS: BP 98/61. Heart rate 101. Respirations 19. Temperature 98.2. HEENT: Head is atraumatic. Pupils equal, round and reactive to light and accommodation. Extraocular muscles intact. Oropharynx clear. NECK: Supple. No mass. No JVD. No bruits. CARDIOVASCULAR EXAM: S1, S2. No murmurs. CHEST: Diminished at the bases but generally clear. ABDOMEN: Obese, soft, nontender, nondistended. EXTREMITIES: Lower extremities without any cyanosis, clubbing or edema. Upper extremities without any significant edema. NEUROLOGIC: Patient without any focal deficits, answering questions appropriately. No focal deficits. DIAGNOSTIC STUDIES LABORATORY: PT and INR 11.8 and 1.0. Chemistry significant for blood glucose 261. White count 6.8, hemoglobin and hematocrit 15.3 and 45.4. Initial troponin less than 0.05. ASSESSMENT AND PLAN 1. Chest pain with the left upper extremity pain: Trend troponin. Follow up on the cardiology evaluation. Will get the left upper extremity ultrasound to rule out DVT. 2. Metabolic syndrome: Resume home medication. 3. History of coronary artery disease and diastolic congestive heart failure: Continue home meds. Cardiology to follow. 4. History of migraine headache and chronic pain: Continue home Demerol. 5. Depression and anxiety: Continue home meds. 6. GI and DVT prophylaxis with the PPI and Lovenox. Dictated by Fanta Nicholas/nanci TD: 07/21/2017 15:29 JOB #: [id number] Unit #: [id number] #: [id number] Patient: CORA LAMB HISTORY AND PHYSICAL Page 1 of 1 X Tacho Syed MD X HISTORY AND PHYSICAL
--- NOTE | ~2017-07-20 | DS ---
Unit #: [id number] #: [id number] Patient: AB CONNORS [id number] [address] [address] [id number] I MR#: [id number] NAME: AB CONNORS ROOM: 56 Age: 52 Sex: F Admission Date: 07/21/2017 : 1965 Discharge Date: 07/25/2017 Attending Physician: Tacho Syed M.D. Primary Care Physician: Leonard Carey M.D. DISCHARGE SUMMARY DISCHARGE DIAGNOSES 1. Chest pain. Status post cardiology evaluation, status post cardiac catheterization. Continue medical management per Cardiology, started on the Effient. 2. Chronic obstructive pulmonary disease. Status post evaluation per Pulmonary. Script for Ventolin and Symbicort in the chart, written by Pulmonary. 3. Metabolic syndrome with hypertension, diabetes and dyslipidemia. Continue home meds. 4. History of migraine headache, stable. Continue home Demerol. 5. Depression and anxiety. Continue home meds. 6. Chronic pain. Continue home Demerol. CONSULTS DONE THIS HOSPITAL STAY 1. Dr. Serrano, cardiology. 2. Dr. Nick Johnson, pulmonary. 3. Dr. Ramon, endocrinology. 4. Also there was a physician, Bassam Bey, from allergy. LABS AND DIAGNOSTICS AND PROCEDURES DONE THIS HOSPITAL STAY 1. CT angio of the chest: No acute findings. No evidence of pulmonary embolism. No adenopathy. 2. Chest x-ray: Normal chest. 3. Lower extremity ultrasound: Negative. No evidence of DVT. 4. Cardiac cath: Please see report per Dr. Serrano. HISTORY OF PRESENT HOSPITAL STAY Please refer to H and P done by me for initial presentation on this female. ACTIVE PROBLEMS AND DIAGNOSES Chest pain. Status post cardiology evaluation. Status post a cardiac cath. Continue aggressive medical management, aspirin and Effient. Patient was desensitized by information manager for aspirin. Continue aspirin and Effient. See discharge med rec below. Outpatient followup with the Cardiology. COPD. Status post evaluation per Pulmonary. Continue Symbicort and Ventolin. Outpatient followup with Pulmonary. Metabolic syndrome with diabetes, dyslipidemia and hypertension. Continue home meds. Unit #: [id number] #: [id number] Patient: AB CONNORS History of chronic pain/anxiety: Continue home medications. DISCHARGE MEDICATIONS 1. Aspirin 81 mg daily. 2. Demerol 50 mg q.4 h. p.r.n. for pain. 3. Amitriptyline 25 mg daily. 4. Effexor 75 mg daily. 5. Januvia 100 mg p.o. at breakfast. 6. Xanax home med 2 mg p.o. t.i.d. 7. Carvedilol 12.5 mg p.o. b.i.d. 8. Alogliptin 25 mg daily. 9. Hydrochlorothiazide 12.5 mg daily. 10. Crestor 10 mg daily. 11. Lisinopril 20 mg daily. 12. Sliding scale insulin. 13. Effient 10 mg daily. 14. Klor-Con 20 mEq daily. 15. Zanaflex 4 mg t.i.d. 16. Symbicort two puff inhaler b.i.d. 17. Ventolin two puff inhaler q.4-6 h. p.r.n. for shortness of air. DISPOSITION As above. DISCHARGE MEDICATIONS Discharge meds as above. CONDITION ON DISCHARGE Patient status post evaluation per PT/OT, stable to discharge home. Dictated by... Tacho Syed M.D. OC/cf TD: 07/25/2017 18:30 JOB #: [id number] DISCHARGE SUMMARY Page 1 of 1 X Tacho Syed MD X DISCHARGE SUMMARY
--- NOTE | ~2017-07-20 | CO ---
Unit #: [id number] #: [id number] Patient: AB LAMB [id number] [address] [place], [place] [address] [id number] MR#: [id number] NAME: AB LAMB ROOM: 565 Age: 52 Sex: F Admission Date: 07/21/2017 : 1965 Attending Physician: Tacho Syed M.D. Primary Care Physician: Leonard Carey M.D. CONSULTATION REPORT HISTORY OF PRESENT ILLNESS Ms. Lamb is a 52-year-old white female with a history of COPD, asthma, obstructive sleep apnea, who presented with onset of left arm, neck, and chest pain associated with some nausea. Apparently, with ambulation she desaturated to 85% or so. We were asked to see in the emergency room. On admission, her room air O2 saturation was recorded at 95%. She received morphine, Benadryl, and Zofran in the emergency room. She has been admitted. She has been seen by Dr. Daley and Dr. Serrano. Cardiac enzymes are negative. EKG shows no acute changes. CT scan of the chest shows no evidence of pulmonary embolus or infiltrate or mass. No adenopathy. Thoracic aorta is normal caliber. Chest x-ray shows no acute infiltrate. She had denied any fever, chills, nocturnal dyspnea, cough, or purulent sputum. PAST MEDICAL HISTORY Significant for coronary artery disease; diastolic dysfunction; obesity; obstructive sleep apnea, although she has lost 100 pounds and stopped wearing CPAP; dyslipidemia; diabetes; depression; migraine headaches; chronic back pain requiring Demerol. PAST SURGICAL HISTORY Cholecystectomy, EGD, colonoscopy, partial hysterectomy, appendectomy, hernia repair, carpal tunnel release, tooth extraction, lithotripsy. HOME MEDICATIONS Not on any pulmonary medicine. She is on Demerol, Xanax, Effexor, Coreg, hydrochlorothiazide, potassium, Elavil, Zanaflex, lisinopril, Crestor, Januvia, insulin. ALLERGIES Penicillin, aminoglycosides, sulfa, codeine, morphine, hydrocodone, nonsteroidals, propoxyphene, aspirin, salicylates, Solu-Medrol, tetracycline, erythromycin, clindamycin, Reglan, Bentyl, Toradol, topiramate, levofloxacin, Zonegran. SOCIAL HISTORY Reformed smoker. No alcohol or illicit drugs. FAMILY HISTORY Negative for lung disease. REVIEW OF SYSTEMS CONSTITUTIONAL: No fevers or chills. Unit #: [id number] #: [id number] Patient: AB LAMB HEENT: No rhinorrhea or nasal congestion. PULMONARY: As noted. CARDIAC: As noted. GI: No nausea or vomiting. No heartburn. No melena or hematochezia. : No hematuria or dysuria. ENDOCRINE: No polyuria or polydipsia. Does have a history of diabetes. No easy bruising or bleeding. SKIN: No rash. MUSCULOSKELETAL: No swollen joints. Has chronic back pain. PHYSICAL EXAMINATION GENERAL: White female in no distress. VITAL SIGNS: Blood pressure is 192/48, pulse 95, respiratory rate 18, afebrile. HEENT: Normocephalic and atraumatic. Pupils are equal, round, and reactive. Sclerae nonicteric. Nasal passages patent. Posterior pharynx crowded, Mallampati III to IV. NECK: Thick, supple. Trachea midline. No cervical or supraclavicular lymphadenopathy. LUNGS: Reveal some mild expiratory wheeze bilaterally. CARDIAC: Heart sounds distant. Regular rate and rhythm. Could not appreciate murmur, rub, or gallop. ABDOMEN: Nontender. Bowel sounds present. No hepatosplenomegaly. EXTREMITIES: Without clubbing, cyanosis, or edema. Homans sign negative. NEUROLOGIC: Awake, alert, and oriented x3. Cranial nerves grossly intact. Muscle strength symmetric bilaterally. Affect, calm. SKIN: Warm and dry. DIAGNOSTIC STUDIES LABORATORY RESULTS: Personally reviewed. Chemistries unremarkable. Glucose 257. AST, ALT, and alkaline phosphatase elevated 59, 52, and 142 respectively. Cardiac enzymes negative. BNP is 14. Coags normal. D-dimer was 345, upper limit of normal being 200. White count 6000, hematocrit 42, platelet count [id number]. IMAGING STUDIES: Chest x-ray and CT scan personally reviewed as noted. IMPRESSION 1. Left arm and chest pain per Cardiology. 2. Chronic obstructive pulmonary disease with exacerbation. 3. History of obstructive sleep apnea, currently not on therapy with CPAP due to 100 pound weight loss, but no documentation of resolution of obstructive sleep apnea. 4. Coronary artery disease, hyperlipidemia, diabetes. 5. Chronic pain. 6. Apparent hypoxia likely secondary to underlying chronic obstructive pulmonary disease with bronchospasm and obesity. PLAN We will start inhaled bronchodilators and inhaled corticosteroids. Given allergy to Solu-Medrol, we will not give parenteral steroids. We will start incentive spirometry. We will check ambulatory pulse oximetry in a.m. to see if there is improvement. Dictated by... Harrison Johnson M.D. Unit #: [id number] #: [id number] Patient: AB LAMB/wes TD: 07/24/2017 14:07 JOB #: [id number] CONSULTATION REPORT Page 1 of 1 X Harrison Johnson MD X CONSULTATION REPORT
--- NOTE | ~2017-07-20 | US140 ---
[facility] A Service of [facility] RADIOLOGY TEXT RESULTS PATIENT: AB CONNORS LOCATION: [facility] [address] : [birth year] UNIT #: [id number] AGE: [address]: Tacho Syed MD SEX: F ORDER DR: [id number] [facility] [address] [facility]. [place], [place] [address] [id number] I MR#: [id number] Acc #: [id number] NAME: AB CONNORS : 1965 SEX: F STUDY DATE/TIME: 07/22/2017 17:00 UNIT: [facility] ROOM: [facility] STUDY DESCRIPTION: US UE Veins Unilat or Ltd Stdy Attending Physician: Tacho Syed M.D. Ordering Physician: Tacho Syed M.D. Primary Care Physician: Leonard Carey M.D. MEDICAL IMAGING REPORT This report is preliminary unless electronic signature is present EXAM Venous Doppler ultrasound examination of the left upper extremity, 07/22/2017 HISTORY 52-year-old female complaining of 3-day history of left arm swelling/edema, pain and discoloration. TECHNIQUE Venous ultrasound examination of the left upper extremity was performed using grayscale, spectral Doppler and color flow Doppler imaging. FINDINGS The examination is negative. There is no evidence of deep venous thrombus within the left internal jugular vein, subclavian vein, axillary vein or brachial veins. No superficial venous thrombus is seen within the cephalic or basilic veins. IMPRESSION Negative examination. No evidence of left upper extremity venous thrombosis. Dictated by... Kenney Lopez M.D. THIS IS AN ELECTRONICALLY VERIFIED REPORT Kenney Lopez M.D. at 07/23/2017 9:47 AM SHIVA/meghna TD: 07/23/2017 04:34 JOB #: [id number] [facility] A Service [facility] RADIOLOGY TEXT RESULTS PATIENT: AB CONNORS LOCATION: [facility] 565 : [birth year] UNIT #: [id number] AGE: [address]: Tacho Syed MD SEX: F ORDER DR: MEDICAL IMAGING REPORT Page 1 of 1 COPY
[~2017-07-20 23:53] MED LIST changes: -ALBUTEROL17 GM INH; -ALLERGY PLUS-S1 EACH PO; -ASPIRIN81 MG PO; -CRESTOR10 MG PO; -CRESTOR40 MG; -DULERA 200 MCG/13 GM INH; -EFFIENT10 MG PO; -HUMULIN R500 UNIT/2 SUBQ; -JARDIANCE25 MG; -JARDIANCE25 MG PO; -POTASSIUM CHLO20 ME1 PO; -SYMBICORT INH; -TIZANIDINE HCL4 M1
[2017-07-21] MEDS ORDERED: TIZANIDINE HCL4 M1 (00:14)
[2017-07-21] MEDS ORDERED: JARDIANCE25 MG (00:15)
[2017-07-21] MEDS ORDERED: CRESTOR40 MG (00:15)
[2017-07-21] MEDS ORDERED: XANAX2 MG PO (00:15)
[2017-07-21 00:38] LABS: BASOPHIL# 0.1 X10e3 (0-0.3); BASOPHIL% 0.8 % (0-2.5); EOSINOPHIL# 0.2 X10e3 (0-0.7); EOSINOPHIL% 3.6 % (0.0-7.0); HEMATOCRIT 45.4 % (35.0-45.0); HEMOGLOBIN 15.3 gm/dL (12.0-16.0); LYMPHOCYTE# 2.1 X10e3 (1.0-3.5); LYMPHOCYTE% 30.3 % (17.0-45.0); MEAN CELL VOLUME 94.1 FL (83-96); MEAN CORPUSCULAR HEMOGLOBIN 31.8 PG (28-34); MEAN CORPUSCULAR HGB CONC 33.8 g/dL (30-36); MEAN PLATELET VOLUME 9.8 FL (6.5-11.5); MONOCYTE# 0.5 X10e3 (0-1.0); NEUTROPHIL% 58.3 % (40-75); PLATELET COUNT 126 X10e3 (140-420); RED BLOOD COUNT 4.82 X10e (3.90-5.30); RED CELL DISTRIBUTION WIDTH 13.8 % (11.0-15.5); WHITE BLOOD COUNT 6.8 X10e3 (4.0-10.5)
[2017-07-21 00:39] LABS: POC - CKMB <1.0 ng/mL (0.0-7.9); POC - MYOGLOBIN 32.2 ng/mL (0.0-169.0)
[2017-07-21 00:39] LABS: DIFF IND NO
[2017-07-21 00:40] LABS: POC - TROPONIN <0.05 ng/mL (<=0.05)
[2017-07-21 01:02] LABS: PROTHROMBIN TIME (PATIENT) 11.8 SECONDS (9.5-12.4)
[2017-07-21 01:09] LABS: PARTIAL THROMBOPLASTIN TIME 28.1 SECONDS (25.6-38.1)
[2017-07-21 01:11] LABS: ALBUMIN SERUM 3.5 g/dL (3.5-5.0); BILIRUBIN, DIRECT 0.2 mg/dL (0.0-0.2); BILIRUBIN,INDIRECT 0.4 mg/dL (0.0-0.9); BILIRUBIN,TOTAL 0.6 mg/dL (0.2-2.0); CALCIUM SERUM 8.8 mg/dL (8.4-10.2); CREATININE SERUM 0.6 mg/dL (0.6-1.4); GLOM FILT RATE Estimated 104.8 mL/min (>60); POTASSIUM 3.5 mmol/L (3.5-5.1); PROTEIN TOTAL SERUM 7.8 g/dL (6.0-8.3)
[2017-07-21] MEDS ORDERED: EFFEXOR XR75 MG PO (07:14)
[2017-07-21] MEDS ORDERED: CARVEDILOL12.5 MG PO (07:15)
[2017-07-21] MEDS ORDERED: HYDROCHLOROTH12.5 M1 PO (07:15)
[2017-07-21] MEDS ORDERED: POTASSIUM CHLO20 ME1 PO (07:16)
[2017-07-21] MEDS ORDERED: TIZANIDINE HCL4 M1 PO (07:16)
[2017-07-21] MEDS ORDERED: AMITRIPTYLINE H25 MG PO (07:16)
[2017-07-21] MEDS ORDERED: LISINOPRIL20 MG PO (07:17)
[2017-07-21] MEDS ORDERED: JANUVIA PO (07:17)
[2017-07-21] MEDS ORDERED: CRESTOR10 MG PO (07:17)
[2017-07-21] MEDS ORDERED: JARDIANCE25 MG PO (07:18)
[2017-07-21] MEDS ORDERED: HUMULIN R500 UNIT/2 SUBQ (07:19)
[2017-07-21 10:44] LABS: CK TOTAL 43 IU/L (26-140)
[2017-07-22 06:19] LABS: HEMOGLOBIN 14.4 gm/dL (12.0-16.0); MEAN CELL VOLUME 92.8 FL (83-96); MEAN CORPUSCULAR HEMOGLOBIN 31.9 PG (28-34); MEAN CORPUSCULAR HGB CONC 34.4 g/dL (30-36); MEAN PLATELET VOLUME 9.1 FL (6.5-11.5); RED BLOOD COUNT 4.53 X10e (3.90-5.30); RED CELL DISTRIBUTION WIDTH 13.5 % (11.0-15.5)
[2017-07-22 06:41] LABS: CALCIUM SERUM 8.8 mg/dL (8.4-10.2); CREATININE SERUM 0.5 mg/dL (0.6-1.4); GLOM FILT RATE Estimated 111.3 mL/min (>60); POTASSIUM 3.9 mmol/L (3.5-5.1)
[2017-07-24 07:17] LABS: HEMATOCRIT 41.7 % (35.0-45.0); HEMOGLOBIN 13.8 gm/dL (12.0-16.0); MEAN CELL VOLUME 93.5 FL (83-96); MEAN CORPUSCULAR HEMOGLOBIN 31.1 PG (28-34); MEAN CORPUSCULAR HGB CONC 33.2 g/dL (30-36); MEAN PLATELET VOLUME 9.4 FL (6.5-11.5); RED BLOOD COUNT 4.46 X10e (3.90-5.30); RED CELL DISTRIBUTION WIDTH 13.7 % (11.0-15.5); WHITE BLOOD COUNT 5.3 X10e3 (4.0-10.5)
[2017-07-24 07:29] LABS: PARTIAL THROMBOPLASTIN TIME 25.9 SECONDS (23.5-31.3); PROTHROMBIN TIME (PATIENT) 10.7 SECONDS (10.0-11.7)
[2017-07-24 07:47] LABS: CALCIUM SERUM 8.8 mg/dL (8.4-10.2); CREATININE SERUM 0.6 mg/dL (0.6-1.4); GLOM FILT RATE Estimated 104.8 mL/min (>60); POTASSIUM 3.7 mmol/L (3.5-5.1)
[2017-07-25 01:48] LABS: CK TOTAL 32 IU/L (26-140)
[2017-07-25 06:27] LABS: CALCIUM SERUM 8.8 mg/dL (8.4-10.2); CREATININE SERUM 0.5 mg/dL (0.6-1.4); GLOM FILT RATE Estimated 111.3 mL/min (>60); POTASSIUM 3.6 mmol/L (3.5-5.1)
[2017-07-25] MEDS ORDERED: ASPIRIN81 MG PO (18:25)
[2017-07-25] MEDS ORDERED: EFFIENT10 MG PO (18:25)
[2017-07-25] MEDS ORDERED: SYMBICORT INH (18:26)
[2017-07-25] MEDS ORDERED: ALBUTEROL17 GM INH (18:27)
[2017-07-25] MEDS ORDERED: JARDIANCE25 MG PO (18:28)
[2017-07-26] MEDS ORDERED: DULERA 200 MCG/13 GM INH (21:12)
[2017-07-26] MEDS ORDERED: PROTONIX PO (21:13)
[2017-07-26] MEDS ORDERED: LEVEMIR100 UNITS/ SUBQ (21:13)
[2017-07-26] MEDS ORDERED: ALLERGY PLUS-S1 EACH PO (21:14)
[2017-07-26] MEDS ORDERED: HUMULIN R500 UNIT/2 SUBQ ×2 (22:05→22:06)
== END 2017-07-26 23:30 | disposition home or self-care (01) | DRG 246 ==
LOC: SED 23:53 → C5C 07-21 03:29 → SED 07-21 14:38 → C5C 07-21 14:38 → CICCU3 07-24 21:02 → C5C 07-24 21:02 → CICCU3 07-24 21:02 → C5C 07-25 03:11 → CICCU3 07-25 11:30 → C5C 07-25 11:30
PROVIDERS: Emergency Medicine; Hospitalist; Internal Medicine Cardiovascular Disease
PROC: 027034Z Dilation of Coronary Artery, One Artery with Drug-eluting Intraluminal Device, Percutaneous Approach (ICD-10-PCS; principal; 2017-07-24)
PROC: 4A023N7 Measurement of Cardiac Sampling and Pressure, Left Heart, Percutaneous Approach (ICD-10-PCS; 2017-07-24)
PROC: B2111ZZ Fluoroscopy of Multiple Coronary Arteries using Low Osmolar Contrast (ICD-10-PCS; 2017-07-24)
PROC: B2151ZZ Fluoroscopy of Left Heart using Low Osmolar Contrast (ICD-10-PCS; 2017-07-24)
PROC: 4A033BC Measurement of Arterial Pressure, Coronary, Percutaneous Approach (ICD-10-PCS; 2017-07-24)
DX: I25.110 Atherosclerotic heart disease of native coronary artery with unstable angina pectoris (principal); J96.01 Acute respiratory failure with hypoxia; I50.30 Unspecified diastolic (congestive) heart failure; J44.1 Chronic obstructive pulmonary disease with (acute) exacerbation; Z68.42 Body mass index [BMI] 45.0-49.9, adult; E66.01 Morbid (severe) obesity due to excess calories; I11.0 Hypertensive heart disease with heart failure; E11.65 Type 2 diabetes mellitus with hyperglycemia; E78.5 Hyperlipidemia, unspecified; D69.6 Thrombocytopenia, unspecified; E88.81 Metabolic syndrome and other insulin resistance; R00.0 Tachycardia, unspecified; R79.89 Other specified abnormal findings of blood chemistry; G47.33 Obstructive sleep apnea (adult) (pediatric); G89.4 Chronic pain syndrome; G43.909 Migraine, unspecified, not intractable, without status migrainosus; R21 Rash and other nonspecific skin eruption; F41.8 Other specified anxiety disorders; Z87.891 Personal history of nicotine dependence; Z79.4 Long term (current) use of insulin; Z91.19 Patient's noncompliance with other medical treatment and regimen; Z88.0 Allergy status to penicillin; Z88.2 Allergy status to sulfonamides; Z88.5 Allergy status to narcotic agent; Z88.6 Allergy status to analgesic agent; Z82.49 Family history of ischemic heart disease and other diseases of the circulatory system
CPT/HCPCS: 36415; 71020; 71275; 80048; 80061; 80076; 82550; 82553; 82810; 82947; 83036; 83874; 83880; 84484; 85025; 85027; 85347; 85379; 85610; 85730; 93005; 93971; 94640; 94664; 94760; 97161; 97162; 97165; 99152; 99153; 99285; C1725; C1769; C1874; C1887; C1894; G8978-GP; G8979-GP; G8980-GP; G8987-GO; G8988-GO; G8989-GO; J0153; J1200; J1644; J1650; J2175; J2250; J2270; J2405; J3010; Q9967